=== PATIENT | male | born 1955 | race Caucasian/White ===

== ENCOUNTER 2016-09-14 11:33 | Emergency (ER) | payer BC ==
[~2016-09-14] VITALS: Ht 175.3 cm; Wt 69.4 kg
[2016-09-14 13:45] LABS: MCH 32.1 PG (29.0-34.0); MCHC 32.7 G/DL (30.0-36.0); MCV 98.2 FL (86-99); MEAN PLAT.VOLUME 8.9 uM^3 (9.0-12.4); PLATELET COUNT 335 K/uL (156-360); RBC DIS.WIDTH-CV 13.2 % (11.8-14.6); RBC DIS.WIDTH-SD 47.8 % (39-53); RED BLOOD COUNT 4.48 M/uL (4.00-5.50); WHITE BLOOD COUNT 7.7 K/uL (4.1-10.2)
[2016-09-14 13:53] LABS: CHLORIDE 103 mEq/L (99-109); POTASSIUM 4.4 mEq/L (3.7-5.4); SODIUM 140 mEq/L (136-147)
[2016-09-14 13:55] LABS: GLUCOSE 96 mg/dL (70-99)
[2016-09-14 13:56] LABS: ANION GAP 8 MEQ/L (2-14)
[2016-09-14 13:59] LABS: GFR ESTIMATE (CALCULATED) > 59 mL/min/
[2016-09-14 14:00] LABS: UREA NITROGEN (BUN) 15 mg/dL (9-23)
[2016-09-14 14:05] LABS: ADD MIUA? NO; BILIRUBIN NEGATIVE; BLOOD NEGATIVE; COLOR YELLOW ((YELLOW)); GLUCOSE (STRIP) NEGATIVE; KETONES NEGATIVE; LEUKOCYTES NEGATIVE; NITRITE NEGATIVE; PROTEIN (STRIP) NEGATIVE; SPECIFIC GRAVITY 1.008 (1.000-1.030); UROBILINOGEN 0.2 MG/DL (0.2-1.0)
[2016-09-14] MEDS ORDERED: FLEXERIL10 MG PO (18:18)
[2016-09-14] MEDS ORDERED: PREDNISONE10 MG PO (18:18)
[2016-09-14] MEDS ORDERED: PERCOCET 5/31 TABLET PO (18:18)
[2016-09-14 18:37] VITALS: BP 206/119
== END 2016-09-14 18:37 | disposition home or self-care (01) ==
LOC: EME 11:33
PROVIDERS: Physician Assistant
DX: G89.18 Other acute postprocedural pain (principal); M54.5 Low back pain; M25.551 Pain in right hip; M79.604 Pain in right leg; Z98.890 Other specified postprocedural states
CPT/HCPCS: 72158; 80048; 81003; 85027; 99281; 99283